=== PATIENT | female | born 1995 | race Caucasian/White ===

== ENCOUNTER 2017-03-10 05:15 | Emergency (ER) | payer BC ==
[~2017-03-10] VITALS: Wt 63.6 kg
[2017-03-10 05:17] VITALS: BP 121/78; TEMP 97.6
[2017-03-10] MEDS ORDERED: ZOLOFT 50MG50 MG PO (05:23)
[2017-03-10] MEDS ORDERED: MUCINEX 60600 MG/TA1 PO (06:55)
[2017-03-10] MEDS ORDERED: DOXYCYCLINE HY100 MG PO (06:55)
[2017-03-10 07:35] VITALS: PULSE 64
== END 2017-03-10 07:35 | disposition home or self-care (01) ==
LOC: COL.ER 05:15
DX: G43.909 Migraine, unspecified, not intractable, without status migrainosus (principal); J01.90 Acute sinusitis, unspecified
CPT/HCPCS: J1885; J2405; J3475; J7030

== ENCOUNTER 2017-03-20 11:10 | Emergency (ER) | payer BC ==
[~2017-03-20] VITALS: Ht 172.7 cm; Wt 63.6 kg
[~2017-03-20 11:10] MED LIST: DOXYCYCLINE HY100 MG PO; MUCINEX 60600 MG/TA1 PO; ZOLOFT 50MG50 MG PO
[2017-03-20 11:17] VITALS: TEMP 98
[2017-03-20 11:47] LABS: BASO % 0.6 % (0.0-2.0); EOS # 0.2 (0.0-0.7); EOS % 3.1 % (0-4.0); GRAN # 3.9 (1.4-6.5); HEMATOCRIT 41.5 % (37.0-47.0); HEMOGLOBIN 13.5 g/dl (12.5-16.0); MEAN CELL VOLUME 87 fl (80.0-100.0); MEAN CORPUSCULAR HEMOGLOBIN 28 pg (27.0-31.0); MEAN CORPUSCULAR HGB CONC 33 g/dl (33.0-37.0); MEAN PLATELET VOLUME 9.8 fl (7.4-10.4); MONO # 0.5 (0.1-0.6); MONO % 7.2 % (1.7-9.3); PLATELET COUNT 222 K/mm3 (130-400); RED BLOOD COUNT 4.79 M/mm3 (4.10-5.30); REDCELL DISTRIBUTION WIDTH-CV 13.2 % (11.5-14.5); WHITE BLOOD COUNT 6.7 K/mm3 (4.8-10.8)
[2017-03-20 11:53] LABS: PH 6 (5-8); URINE APPEARANCE Hazy; URINE BACTERIA Rare /hpf; URINE BILIRUBIN Negative (NEGATIVE); URINE BLOOD Negative (NEGATIVE); URINE COLOR Yellow; URINE GLUCOSE Negative (NEGATIVE); URINE KETONE Negative (NEGATIVE); URINE UROBILINOGEN Negative (NEGATIVE)
[2017-03-20 12:02] LABS: ALBUMIN 4.7 gm/dL (3.5-5.0); BILIRUBIN,TOTAL 0.8 mg/dL (0.0-1.0); CALCIUM 9.6 mg/dL (8.4-10.2); CREATININE, serum 0.78 mg/dL (0.52-1.25); POTASSIUM 3.9 mmol/L (3.4-5.0); TOTAL PROTEIN 7.8 gm/dL (6.4-8.2)
[2017-03-20] MEDS ORDERED: PERCOCET 325 MG1 TA2 PO (14:01)
[2017-03-20] MEDS ORDERED: ZOFRAN 4MG T4 MG/TAB PO (14:01)
[2017-03-20] MEDS ORDERED: MACROBID 1100 MG/CAP PO (14:02)
[2017-03-20] MEDS ORDERED: TYLENOL W/COD1 UDTAB PO (14:16)
[2017-03-20 14:31] VITALS: BP 113/66; PULSE 78
== END 2017-03-20 14:30 | disposition home or self-care (01) ==
LOC: COL.ER 11:10
PROVIDERS: Emergency Medicine
DX: N13.2 Hydronephrosis with renal and ureteral calculous obstruction (principal); R82.71 Bacteriuria
CPT/HCPCS: J1170; J1885; J2405; J7030; Q9967